=== PATIENT | female | born 1955 | race Caucasian/White ===

== ENCOUNTER → 2018-02-23 | Outpatient (CLI) | payer OTHER | END | disposition home or self-care (01) | LOC: Rad HDHVI 13:54 | PROVIDERS: ATTEND Internal Medicine Cardiovascular Disease | DX: I34.0 Nonrheumatic mitral (valve) insufficiency (principal); I10 Essential (primary) hypertension; E11.9 Type 2 diabetes mellitus without complications; R00.2 Palpitations | CPT/HCPCS: 93306 ==

== ENCOUNTER → 2020-06-17 | Outpatient (CLI) | payer MEDICARE | END | disposition home or self-care (01) | LOC: Rad HDHVI 11:05 | PROVIDERS: ATTEND Internal Medicine Cardiovascular Disease | DX: I34.0 Nonrheumatic mitral (valve) insufficiency (principal); I10 Essential (primary) hypertension; R06.02 Shortness of breath; R00.2 Palpitations | CPT/HCPCS: 93306 ==

== ENCOUNTER → 2020-06-25 | Outpatient (CLI) | payer MEDICARE ==
[~2020-06-25] VITALS: Ht 154.9 cm; Wt 95.3 kg
[~2020-06-25] MED LIST: ADENOSINE 80 MG in GIVE UN-DILUTED 0 ML IV ONE; ADENOSINE 90 MG/30 ML INJ IV ONE
== END | disposition home or self-care (01) ==
LOC: Rad HDHVI 09:01
PROVIDERS: ATTEND Internal Medicine Cardiovascular Disease
DX: I10 Essential (primary) hypertension (principal); E11.42 Type 2 diabetes mellitus with diabetic polyneuropathy; E66.9 Obesity, unspecified; E78.5 Hyperlipidemia, unspecified; Z82.49 Family history of ischemic heart disease and other diseases of the circulatory system
CPT/HCPCS: 78452; 93005; 96374; 96375; A9500; J0153

== ENCOUNTER → 2021-03-19 | Outpatient (CLI) | payer MEDICARE ==
[2021-03-19 15:18] LABS: Urine Blood Negative /uL (Negative); Urine Specific Gravity 1.017 (1.001-1.035)
[2021-03-19 15:27] LABS: BUN/Creatinine Ratio 15.1; Calcium 9.9 mg/dL (8.5-10.1); Potassium 3.5 mmol/L (3.5-5.1)
== END | disposition home or self-care (01) ==
LOC: LAB 13:33
PROVIDERS: ATTEND Internal Medicine Cardiovascular Disease
DX: N39.0 Urinary tract infection, site not specified (principal); I10 Essential (primary) hypertension
CPT/HCPCS: 36415; 80048; 81003; 87086

== ENCOUNTER → 2022-03-08 | Outpatient (CLI) | payer MEDICARE | END | disposition home or self-care (01) | LOC: Rad HDHVI 08:05 | PROVIDERS: ATTEND Internal Medicine Cardiovascular Disease | DX: J32.9 Chronic sinusitis, unspecified (principal); I10 Essential (primary) hypertension; E78.5 Hyperlipidemia, unspecified | CPT/HCPCS: 70220; 93880 ==

== ENCOUNTER → 2022-03-15 | Outpatient (CLI) | payer MEDICARE | END | disposition home or self-care (01) | LOC: Rad HDHVI 08:42 | PROVIDERS: ATTEND Internal Medicine Cardiovascular Disease | DX: I07.1 Rheumatic tricuspid insufficiency (principal); R00.2 Palpitations | CPT/HCPCS: 93306 ==

== ENCOUNTER → 2023-01-18 | Outpatient (CLI) | payer MEDICARE | END | disposition home or self-care (01) | LOC: Rad HDHVI 14:23 | PROVIDERS: ATTEND Internal Medicine Cardiovascular Disease | DX: M19.012 Primary osteoarthritis, left shoulder (principal); M47.812 Spondylosis without myelopathy or radiculopathy, cervical region; M48.02 Spinal stenosis, cervical region; M50.30 Other cervical disc degeneration, unspecified cervical region; G50.0 Trigeminal neuralgia | CPT/HCPCS: 72040; 73030 ==

== ENCOUNTER 2023-02-04 06:04 | Inpatient (IN) | payer MEDICARE ==
[~2023-02-04] VITALS: Ht 154.9 cm; Wt 88.7 kg
[2023-02-04 08:33] VITALS: BP 165/58
[2023-02-04] MEDS ORDERED: MORPHINE SULFATE INJ 2 MG/ml SYRG IV PRN (09:00)
[2023-02-04] MEDS ORDERED: NITROGLYCERIN 0.4 MG SL TAB SL PRN (09:00)
[2023-02-04] MEDS ORDERED: ASPI325T4 PO (10:00)
[2023-02-04] MEDS ORDERED: CHOL20007 PO (10:00)
[2023-02-04] MEDS ORDERED: ALPR0.254 PO (10:00)
[2023-02-04] MEDS ORDERED: LOVA40TA72 PO (10:00)
[2023-02-04] MEDS ORDERED: ENOXAPARIN SOD 60 MG/0.6 ML SYRINGE SC SCH (10:00)
[2023-02-04] MEDS ORDERED: OMEP-335 PO (10:00)
[2023-02-04] MEDS ORDERED: DULA0.5I SC (10:00)
[2023-02-04] MEDS ORDERED: INSLISPI SC (10:00)
[2023-02-04] MEDS ORDERED: METF-929 PO (10:00)
[2023-02-04] MEDS ORDERED: GING500C3 PO (10:00)
[2023-02-04] MEDS ORDERED: OLMETAB9 PO (10:00)
[2023-02-04] MEDS ORDERED: INSLANTI SC (10:00)
[2023-02-04] MEDS ORDERED: MAGN400T40 PO (10:00)
[2023-02-04] MEDS: ENOXAPARIN SOD 60 MG/0.6 ML SYRINGE SC SCH ×2 (12:36→21:47)
[2023-02-04 13:00] VITALS: BP 149/71
[2023-02-04 17:00] VITALS: BP 143/66
[2023-02-04 22:00] VITALS: BP 158/69
[2023-02-05 05:00] VITALS: BP 159/63
[2023-02-05 06:51] LABS: Basophils # (auto) 0.1 10 ^3/uL (0-0.2); Eosinophils # (auto) 0.3 10 ^3/uL (0-0.8); Eosinophils % (auto) 2.1 % (0.0-7.0); Lymphocytes # (auto) 1.7 10 ^3/uL (0.4-5.4); Mean Corpuscular Volume 75.2 fL (80.0-100.0); Neutrophils # (auto) 9.5 10 ^3/uL (1.6-8.6); White Blood Cell 12.7 10^3/uL (4.4-10.8)
[2023-02-05 06:54] LABS: Basophils % (auto) 0.8 % (0.0-2.0); Hematocrit 42.3 % (36.0-46.0); Lymphocytes % (auto) 13.7 % (10.0-50.0); Mean Corpuscular Hgb Conc. 33.2 g/dL (32.0-36.0); Monocytes % (auto) 8.2 % (0.0-12.0); Neutrophils % (auto) 75.2 % (37.0-80.0); Nucleated Red Blood Cells % 0.3 %; Red Blood Cells 5.62 10^6/uL (4.0-5.20); Red Cell Distribution Width 17.3 % (11.8-14.3)
[2023-02-05 07:29] LABS: Potassium 3.6 mmol/L (3.5-5.1)
[2023-02-05 07:43] LABS: Albumin 3.6 g/dL (3.4-5.0); BUN/Creatinine Ratio 18.8 (10.0-20.0); Bilirubin, Total 0.5 mg/dL (0.2-1.0); Total Protein 7.8 g/dL (6.4-8.2)
[2023-02-05 08:00] VITALS: BP 141/60
[2023-02-05 09:00] VITALS: BP 141/68
[2023-02-05] MEDS: ENOXAPARIN SOD 60 MG/0.6 ML SYRINGE SC SCH ×2 (10:08→22:19)
[2023-02-05] MEDS ORDERED: ACETAMINOPHEN 325 MG TAB PO PRN (10:30)
[2023-02-05] MEDS ORDERED: KETOROLAC TROMETH 30 MG/ML 1ML VIAL IV PRN ×2 (10:30→10:45)
[2023-02-05] MEDS ORDERED: DULAGLUTIDE 1.5 MG SC SCH (12:15)
[2023-02-05 13:21] VITALS: BP 150/58
[2023-02-05] MEDS ORDERED: INSULIN LISPRO (HUMAN) 100 UNITS/ML ML SC SCH (14:00)
[2023-02-05 17:06] VITALS: BP 140/56
[2023-02-05] MEDS: INSULIN LISPRO (HUMAN) 100 UNITS/ML ML SC SCH (17:28)
[2023-02-05 22:00] VITALS: BP 155/79
[2023-02-05] MEDS: ALPRAZolam 0.25 MG TAB PO SCH (22:00)
[2023-02-05] MEDS ORDERED: PATIENTS OWN MEDICATION (Omeprazole 20 MG) PO SCH (22:00)
[2023-02-05] MEDS: ATORVASTATIN 20 MG TAB PO SCH (22:14)
[2023-02-05] MEDS: MAGNESIUM OXIDE 400 MG TAB PO SCH (22:14)
[2023-02-05] MEDS: PANTOPRAZOLE 40 MG TAB PO SCH (22:14)
[2023-02-06 05:00] VITALS: BP 158/70
[2023-02-06] MEDS: INSULIN LISPRO (HUMAN) 100 UNITS/ML ML SC SCH ×3 (06:48→17:23)
[2023-02-06 08:00] VITALS: BP 148/64
[2023-02-06 09:00] VITALS: BP 148/64
[2023-02-06] MEDS: ENOXAPARIN SOD 60 MG/0.6 ML SYRINGE SC SCH ×2 (09:09→22:31)
[2023-02-06] MEDS: ALPRAZolam 0.25 MG TAB PO SCH ×2 (09:09→22:30)
[2023-02-06] MEDS: ASPirin-EC 81 mg tab PO SCH (09:10)
[2023-02-06] MEDS: CHOLECALCIFEROL (VITD3) 2,000 UNIT CAP/TAB PO SCH (09:10)
[2023-02-06] MEDS: PANTOPRAZOLE 40 MG TAB PO SCH ×2 (09:10→22:30)
[2023-02-06] MEDS: MAGNESIUM OXIDE 400 MG TAB PO SCH ×2 (09:10→22:30)
[2023-02-06] MEDS: [UNRECOGNIZED DRUG - OTHER] PO SCH (09:10)
[2023-02-06 11:31] LABS: INR 1.08 (0.9-1.15); Partial Thromboplastin Time 37.3 sec (24.6-33.4)
[2023-02-06 13:00] VITALS: BP 149/72
[2023-02-06 14:46] LABS: Urine Bacteria FEW /hpf (None Seen); Urine Blood Negative /uL (Negative); Urine WBC 23 /hpf (0 - 5)
[2023-02-06 17:00] VITALS: BP 156/58
[2023-02-06 22:00] VITALS: BP 156/63
[2023-02-06] MEDS: ATORVASTATIN 20 MG TAB PO SCH (22:30)
[2023-02-07] VITALS (9 sets, daily range): BP systolic 126–153; BP diastolic 55–68
[2023-02-07] MEDS: INSULIN LISPRO (HUMAN) 100 UNITS/ML ML SC SCH ×3 (06:23→18:46)
[2023-02-07] MEDS: ASPirin-EC 81 mg tab PO SCH (10:00)
[2023-02-07] MEDS: ENOXAPARIN SOD 60 MG/0.6 ML SYRINGE SC SCH (10:00)
[2023-02-07] MEDS: CHOLECALCIFEROL (VITD3) 2,000 UNIT CAP/TAB PO SCH (10:17)
[2023-02-07] MEDS: MAGNESIUM OXIDE 400 MG TAB PO SCH ×2 (10:17→22:02)
[2023-02-07] MEDS: PANTOPRAZOLE 40 MG TAB PO SCH ×2 (10:17→22:02)
[2023-02-07] MEDS: ALPRAZolam 0.25 MG TAB PO SCH ×2 (10:17→22:02)
[2023-02-07] MEDS: [UNRECOGNIZED DRUG - OTHER] PO SCH (10:18)
[2023-02-07] MEDS ORDERED: ANGIOMAX 250 MG VIAL IV ONE (14:18)
[2023-02-07] MEDS ORDERED: MIDAZOLAM HCL 2MG/2ML 2ml VIAL (1mg/ml) ONE (14:18)
[2023-02-07] MEDS ORDERED: fentaNYL CITRATE 100 MCG/2 ML VL ONE (14:18)
[2023-02-07] MEDS ORDERED: SODIUM CHL 0.9% 50 ML ONE (14:18)
[2023-02-07] MEDS ORDERED: LIDOCAINE 2%HCL (LOCAL ANESTH.) INJ 20ML MDV ONE (14:20)
[2023-02-07] MEDS ORDERED: IODIXANOL 320MG/ML 100ML BTL IV ONE (14:20)
[2023-02-07] MEDS ORDERED: TICAGRELOR 90 MG TAB ONE (14:52)
[2023-02-07] MEDS ORDERED: ASPirin 325 MG TAB ONE (14:52)
[2023-02-07] MEDS: TICAGRELOR 90 MG TAB PO SCH (22:01)
[2023-02-07] MEDS: ATORVASTATIN 20 MG TAB PO SCH (22:01)
[2023-02-08 05:19] VITALS: BP 125/83
[2023-02-08] MEDS: INSULIN LISPRO (HUMAN) 100 UNITS/ML ML SC SCH ×3 (06:25→18:00)
[2023-02-08 09:00] VITALS: BP 120/49
[2023-02-08] MEDS ORDERED: OLMESARTAN PO SCH (10:00)
[2023-02-08] MEDS: PANTOPRAZOLE 40 MG TAB PO SCH (10:00)
[2023-02-08] MEDS ORDERED: HYDROCHLOROTHIAZIDE PO SCH (10:00)
[2023-02-08] MEDS ORDERED: AMLODIPINE PO SCH (10:00)
[2023-02-08] MEDS: CHOLECALCIFEROL (VITD3) 2,000 UNIT CAP/TAB PO SCH (10:00)
[2023-02-08] MEDS: ASPirin-EC 81 mg tab PO SCH (10:00)
[2023-02-08] MEDS: ALPRAZolam 0.25 MG TAB PO SCH (10:00)
[2023-02-08] MEDS: MAGNESIUM OXIDE 400 MG TAB PO SCH (10:01)
[2023-02-08] MEDS: TICAGRELOR 90 MG TAB PO SCH (10:01)
[2023-02-08 13:00] VITALS: BP 149/64
[2023-02-08 16:56] VITALS: BP 149/62
== END 2023-02-08 19:00 | disposition home or self-care (01) | DRG 247 ==
LOC: WEST WING 06:30 → UNDOADMIN 06:30 → WEST WING 08:50 → TELE-WESTW 02-05 09:06
PROVIDERS: ADMIT Internal Medicine Cardiovascular Disease; ATTEND Internal Medicine Cardiovascular Disease
PROC: 027034Z Dilation of Coronary Artery, One Artery with Drug-eluting Intraluminal Device, Percutaneous Approach (ICD-10-PCS; principal; 2023-02-07)
PROC: 4A033BC Measurement of Arterial Pressure, Coronary, Percutaneous Approach (ICD-10-PCS; 2023-02-07)
PROC: 4A023N7 Measurement of Cardiac Sampling and Pressure, Left Heart, Percutaneous Approach (ICD-10-PCS; 2023-02-07)
PROC: B211YZZ Fluoroscopy of Multiple Coronary Arteries using Other Contrast (ICD-10-PCS; 2023-02-07)
PROC: B215YZZ Fluoroscopy of Left Heart using Other Contrast (ICD-10-PCS; 2023-02-07)
PROC: B41CYZZ Fluoroscopy of Pelvic Arteries using Other Contrast (ICD-10-PCS; 2023-02-07)
DX: I21.4 Non-ST elevation (NSTEMI) myocardial infarction (principal); E78.5 Hyperlipidemia, unspecified; I10 Essential (primary) hypertension; Z20.822 Contact with and (suspected) exposure to COVID-19; Z68.36 Body mass index [BMI] 36.0-36.9, adult; E11.9 Type 2 diabetes mellitus without complications; F41.9 Anxiety disorder, unspecified; E66.01 Morbid (severe) obesity due to excess calories; I25.119 Atherosclerotic heart disease of native coronary artery with unspecified angina pectoris; Z82.49 Family history of ischemic heart disease and other diseases of the circulatory system; Z83.3 Family history of diabetes mellitus
CPT/HCPCS: 36415; 71045; 80053; 81001; 82962; 83880; 85025; 85610; 85730; 86850; 86900; 86901; 92941; 93005; 93458; 99152; G0378; J1815; J1885; J2250; Q9967

== ENCOUNTER → 2023-03-08 | Outpatient (CLI) | payer MEDICARE ==
[~2023-03-08] MED LIST changes: -ADENOSINE 80 MG in GIVE UN-DILUTED 0 ML IV ONE; -ADENOSINE 90 MG/30 ML INJ IV ONE; +ALPR0.254 PO; +ASPI325T4 PO; +CHOL20007 PO; +DULA0.5I SC; +GING500C3 PO; +INSLANTI SC; +INSLISPI SC; +LOVA40TA72 PO; +MAGN400T40 PO; +METF-929 PO; +OLMETAB9 PO; +OMEP-335 PO
== END | disposition home or self-care (01) ==
LOC: Rad HDHVI 13:44
PROVIDERS: ATTEND Internal Medicine Cardiovascular Disease
DX: I34.0 Nonrheumatic mitral (valve) insufficiency (principal); R06.02 Shortness of breath; R00.2 Palpitations
CPT/HCPCS: 93306

== ENCOUNTER → 2023-11-24 | Outpatient (CLI) | payer MEDICARE ==
[~2023-11-24] MED LIST changes: +OLME-49 PO; -OLMETAB9 PO
== END | disposition home or self-care (01) ==
LOC: Rad HDHVI 12:39
PROVIDERS: ATTEND Internal Medicine Cardiovascular Disease
DX: I08.0 Rheumatic disorders of both mitral and aortic valves (principal); I10 Essential (primary) hypertension; R06.02 Shortness of breath
CPT/HCPCS: 93306

== ENCOUNTER → 2023-12-02 | Outpatient (CLI) | payer MEDICARE ==
[~2023-12-02] VITALS: Ht 154.9 cm; Wt 79.8 kg
[~2023-12-02] MED LIST changes: +ADENOSINE 67 MG in GIVE UN-DILUTED 0 ML IV ONE; +ADENOSINE 90 MG/30 ML INJ IV ONE
== END | disposition home or self-care (01) ==
LOC: Rad HDHVI 08:45
PROVIDERS: ATTEND Internal Medicine Cardiovascular Disease
DX: I11.0 Hypertensive heart disease with heart failure (principal); I50.33 Acute on chronic diastolic (congestive) heart failure; I25.10 Atherosclerotic heart disease of native coronary artery without angina pectoris; E11.21 Type 2 diabetes mellitus with diabetic nephropathy; E11.9 Type 2 diabetes mellitus without complications; R06.02 Shortness of breath; E78.00 Pure hypercholesterolemia, unspecified; Z82.49 Family history of ischemic heart disease and other diseases of the circulatory system
CPT/HCPCS: 78452; 93005; 96374; 96375; A9500; J0153

== ENCOUNTER → 2024-09-28 | Outpatient (CLI) | payer MEDICARE ==
[~2024-09-28] VITALS: Ht 154.9 cm; Wt 79.8 kg
[~2024-09-28] MED LIST changes: -ASPI325T4 PO; +ASPI325T6 PO
== END | disposition home or self-care (01) ==
LOC: Rad HDHVI 09:22
PROVIDERS: ATTEND Internal Medicine Cardiovascular Disease
DX: I11.0 Hypertensive heart disease with heart failure (principal); I50.23 Acute on chronic systolic (congestive) heart failure; I50.33 Acute on chronic diastolic (congestive) heart failure; I25.10 Atherosclerotic heart disease of native coronary artery without angina pectoris; E78.00 Pure hypercholesterolemia, unspecified; E11.21 Type 2 diabetes mellitus with diabetic nephropathy; I25.5 Ischemic cardiomyopathy; Z82.49 Family history of ischemic heart disease and other diseases of the circulatory system
CPT/HCPCS: 78452; 93005; 96374; 96375; A9500; J0153

== ENCOUNTER 2025-03-06 16:36 | Inpatient (IN) | payer MEDICARE ==
[~2025-03-06] VITALS: Ht 154.9 cm; Wt 81.5 kg
[~2025-03-06 16:36] MED LIST changes: -ADENOSINE 67 MG in GIVE UN-DILUTED 0 ML IV ONE; -ADENOSINE 90 MG/30 ML INJ IV ONE
--- NOTE | 2025-03-06 16:57 | ECG ---
[facility] Test Date: 2025-03-06 Test Time: 16:43:47 Pat Name: MARTÍNEZ CARBALLO Department: ER Room: Gender: F Subeditor: DONITA : 1955 Requested By: MARCIAL PATINO Order Number: [id number] Reading MD: Nathen Huber Measurements Intervals [place] Rate: 77 P: 39 ID: [id number] QRS: -15 QRSD: 95 T: 58 QT: 415 QTc: 470 Interpretive Statements Sinus rhythm Borderline left axis deviation Abnormal R-wave progression, early transition Electronically Signed On 03-06-2025 17:12:01 PDT by Nathen Huber Please click the below link to view image of tracing.
[2025-03-06 18:14] LABS: Basophils # (auto) 0.1 10 ^3/uL (0-0.2); Eosinophils # (auto) 0 10 ^3/uL (0-0.8); Hemoglobin 14.9 g/dL (12.2-16.2); Monocytes # (auto) 0.5 10 ^3/uL (0-1.3)
[2025-03-06 18:15] LABS: Basophils % (auto) 0.8 % (0.0-2.0); Eosinophils % (auto) 0.3 % (0.0-7.0); Hematocrit 42.6 % (36.0-46.0); Lymphocytes # (auto) 1.2 10 ^3/uL (0.4-5.4); Lymphocytes % (auto) 12.2 % (10.0-50.0); Mean Corpuscular Hemoglobin 35.9 pg (28.0-32.0); Mean Corpuscular Volume 102.7 fL (80.0-100.0); Monocytes % (auto) 5.1 % (0.0-12.0); Neutrophils # (auto) 7.9 10 ^3/uL (1.6-8.6); Neutrophils % (auto) 81.6 % (37.0-80.0); Nucleated Red Blood Cells % 0.2 %; Platelet Count (auto) 430 10^3/uL (140-450); Red Blood Cells 4.14 10^6/uL (4.0-5.20); Red Cell Distribution Width 14.2 % (11.8-14.3); White Blood Cell 9.6 10^3/uL (4.4-10.8)
--- NOTE | 2025-03-06 18:20 | DVH ---
XY CHEST TWO VIEWS ROUTINE CLINICAL HISTORY: chest pain COMPARISON: None TECHNIQUE: Frontal and lateral view of the chest was obtained FINDINGS: Lines and Tubes: None Lungs: No focal consolidation. Bilateral lower lung zone linear densities. Pleura: No effusion. No pneumothorax. Cardiomediastinal contours:Heart size is within normal limits. Interval placement of a device overlyi ng the left chest wall. Unchanged prominence of the pulmonary arteries which may be seen with pulmona ry arterial hypertension Bones: No acute osseous abnormality. IMPRESSION: Bilateral lower lung zone linear atelectasis. Otherwise, no evidence for acute cardiopulmonary disea se
[2025-03-06 18:27] LABS: Alanine Aminotransferase 11 U/L (7-40); Alkaline Phosphatase 100 U/L (46-116); Anion Gap 12 (5-15); Aspartate Aminotransferase 17 U/L (13-40); BUN/Creatinine Ratio 17.2 (10.0-20.0); Blood Urea Nitrogen 17 mg/dL (9-23); Carbon Dioxide 23 mmol/L (20-31); Potassium 3.8 mmol/L (3.5-5.1); Total Protein 7.7 g/dL (5.7-8.2)
[2025-03-06 18:28] LABS: Bilirubin, Total 0.7 mg/dL (0.2-1.0)
[2025-03-06 18:33] LABS: Albumin 4.9 g/dL (3.2-4.8); Chloride 94 mmol/L (98-107); Glucose 126 mg/dL (74-106); Sodium 129 mmol/L (136-145)
--- NOTE | 2025-03-06 18:51 | ED.PDOC ---
HPI Comments THIS IS A 69-YEAR-OLD FEMALE C/O LEFT SIDED CHEST PAIN X 1 WEEK WITH UPPER BACK PAIN, LEFT EAR PAIN AND SHOULDER PAIN C/O HEADACHE DENIES N/V/D DENIES DIZZINESS OR SOB HAD HOLTER MONITOR PLACED BY DR THAKUR 4 DAYS AGO. Chief Complaint: Chest Pain Time Seen by MD: 17:22 Primary Care Provider: OFE Reviewed Notes: Nurses Notes, Medications, Allergies Allergies: Coded Allergies: Codeine (Verified Allergy, Unknown, 09/10/16) Penicillins (Verified Allergy, Unknown, 09/10/16) Sulfa Antibiotics (Verified Allergy, Unknown, 09/10/16) Home Meds Reported Medications Insulin Lispro (Human) (Humalog) 100 Unit/Ml Inj, 15 UNIT SC TID, INJ 02/04/23 Insulin Glargine (Lantus) 100 Unit/Ml Inj, 55 UNIT SC AC, INJ 02/04/23 Aspirin (Aspirin) 325 Mg Tab, 81 MG PO DAILY for 30 Days, MG 02/04/23 Cristina Oil (Cristina) 500 Mg Cap, 4 CAP PO Q6HR, CAP 02/04/23 Alprazolam (Alprazolam) 0.25 Mg Tab, 1 TAB PO BID, #60 TAB 02/04/23 Cholecalciferol (VITAMIN D3) 2,000 Unit Tab, 5000 UNITS PO DAILY, #90 TAB 3 Refills 02/04/23 Magnesium Oxide (MAGNESIUM OXIDE) 400 Mg Tab, 1 TAB PO BID, #60 TAB 5 Refills 02/04/23 Lovastatin (Lovastatin) 40 Mg Tab, 1 TAB PO DAILY, #30 TAB 5 Refills 02/04/23 Olmesartan Medoxomil-Amlodipin (Tribenzor) Tab, 1 TAB PO DAILY, #30 TAB 5 Refills 02/04/23 Metformin HCl (Metformin Hydrochloride) 1,000 Mg Tab, 1000 MG PO BID, TAB 02/04/23 Omeprazole (Omeprazole) 20 Mg Tab, 20 MG PO BID, TAB 02/04/23 Dulaglutide (Trulicity) 1.5 Mg/0.5 Ml Inj, 1.5 MG SC QWEEKLY, INJ 02/04/23 Information Source: Patient Mode of Arrival: Ambulatory Past Medical History Medical History: DM (INSULIN DEPENDENT) Operations (others): CARDIAC STENT PLACEMENT X1 Family History Family History: Unknown Social History Smoking: Non-Smoker Alcohol: Denies ETOH Use Drugs: Denies Drug Use Constitutional: denies: chills, diaphoresis, fatigue, fever, malaise, sweats, weakness, others EENTM: denies: blurred vision, double vision, ear bleeding, ear discharge, ear drainage, ear pain, ear ringing, eye pain, eye redness, hearing loss, mouth pain, mouth swelling, nasal discharge, nose bleeding, nose congestion, nose pain, photophobia, tearing, throat pain, throat swelling, voice changes, others Respiratory: denies: cough, hemoptysis, orthopnea, SOB at rest, shortness of breath, SOB with excertion, stridor, wheezing, others Cardiovascular: reports: chest pain; denies: dizzy spells, diaphoresis, Dyspnea on exertion, edema, irregular heart beat, left arm pain, lightheadedness, palpitations, PND, syncope, others Gastrointestinal: denies: abdomen distended, abdominal pain, blood streaked bowels, constipated, diarrhea, dysphagia, difficulty swallowing, hematemesis, melena, nausea, poor appetite, poor fluid intake, rectal bleeding, rectal pain, vomiting, others Genitourinary: denies: abnormal vagina bleeding, burning, dyspareunia, dysuria, flank pain, frequency, hematuria, incontinence, pain, , vagina discharge, urgency, others Neurological: reports: headache; denies: dizziness, fainting, left sided numbness, left sided weakness, numbness, paresthesia, pre-existing deficit, right sided numbness, right sided weakness, seizure, speech problems, tingling, tremors, weakness, others Musculoskeletal: reports: back pain; denies: gout, joint pain, joint swelling, muscle pain, muscle stiffness, neck pain, others Integumetry: denies: bruises, change in color, change in hair/nails, dryness, laceration, lesions, lumps, rash, wounds, others Allergic/Immunocompromised: denies: Difficulty Healing, Frequent Infections, Hives, Itching, others Hematologic/Lymphatic: denies: anemia, blood clots, easy bleeding, easy bruising, swollen glands, others Endocrine: denies: excessive hunger, excessive sweating, excessive thirst, excessive urination, flushing, intolerance to cold, intolerance to heat, unexplained weight gain, unexplained weight loss, others Psychiatric: denies: anxiety, bipolar disorder, depression, hopeless, panic disorder, schizophrenia, sleepless, suicidal, others Physical Exam General Appearance: No Apparent Distress, Normal HEENT: Normal ENT Inspection, Pharynx Normal, TMs Normal Neck: Full Range of Motion, Non-Tender Respiratory: Chest Non-Tender, Lungs Clear, No Respiratory Distress, Normal Breath Sounds Cardiovascular: No Edema, No JVD, No Murmur, No Gallop, Normal Peripheral Pulses, Regular Rate/Rhythm Breast Exam: Deferred Gastrointestinal: No Organomegaly, Non Tender, No Pulsatile Mass, Normal Bowel Sounds, Soft Genitalia: Deferred Pelvic: Deferred Rectal: Deferred Extremities: Normal capillary refill, Normal inspection, Normal range of motion, Non-tender, No pedal edema Musculoskeletal : Apperance: Normal Neurologic: Alert, 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 Was a procedure done?: No CP Differential Dx Differential Diagnosis: N/A Differential Diagnosis: Chest Wall Pain, Esophageal reflux/spasm, Gastritis, Myocardial Infarction, Pericarditis X-Ray, Labs, Meds, VS Vital Signs Date Time Temp Pulse Resp B/P (MAP) Pulse Ox O2 Delivery O2 Flow Rate FiO2 03/06/25 16:45 77 03/06/25 16:37 98.3 75 18 154/61 (92) 97 98.3 Lab Test 03/06/25 17:56 03/06/25 16:52 03/06/25 16:50 Range/Units Troponin I High Sensitivity 24 24 </=34 ng/L White Blood Count 9.6 4.4-10.8 10^3/uL Red Blood Count 4.14 4.0-5.20 10^6/uL Hemoglobin 14.9 12.2-16.2 g/dL Hematocrit 42.6 36.0-46.0 % Mean Corpuscular Volume 102.7 H 80.0-100.0 fL Mean Corpuscular Hemoglobin 35.9 H 28.0-32.0 pg Mean Corpuscular Hemoglobin Concent 35.0 32.0-36.0 g/dL Red Cell Distribution Width 14.2 11.8-14.3 % Platelet Count 430 140-450 10^3/uL Mean Platelet Volume 6.5 L 6.9-10.8 fL Neutrophils (%) (Auto) 81.6 H 37.0-80.0 % Lymphocytes (%) (Auto) 12.2 10.0-50.0 % Monocytes (%) (Auto) 5.1 0.0-12.0 % Eosinophils (%) (Auto) 0.3 0.0-7.0 % Basophils (%) (Auto) 0.8 0.0-2.0 % Neutrophils # (Auto) 7.9 1.6-8.6 10 ^3/uL Lymphocytes # (Auto) 1.2 0.4-5.4 10 ^3/uL Monocytes # (Auto) 0.5 0-1.3 10 ^3/uL Eosinophils # (Auto) 0 0-0.8 10 ^3/uL Basophils # (Auto) 0.1 0-0.2 10 ^3/uL Nucleated Red Blood Cells 0.2 % Sodium Level 129 L 136-145 mmol/L Potassium Level 3.8 3.5-5.1 mmol/L Chloride Level 94 L 98-107 mmol/L Carbon Dioxide Level 23 20-31 mmol/L Anion Gap 12 5-15 Blood Urea Nitrogen 17 9-23 mg/dL Creatinine 0.99 0.550-1.02 mg/dL Glomerular Filtration Rate Calc 61 >90 mL/min BUN/Creatinine Ratio 17.2 10.0-20.0 Serum Glucose 126 H 74-106 mg/dL Calcium Level 11.0 H 8.7-10.4 mg/dL Total Bilirubin 0.7 0.2-1.0 mg/dL Aspartate Amino Transferase (AST) 17 13-40 U/L Alanine Aminotransferase (ALT) 11 7-40 U/L Alkaline Phosphatase 100 46-116 U/L Total Protein 7.7 5.7-8.2 g/dL Albumin 4.9 H 3.2-4.8 g/dL Thyroid Stimulating Hormone (TSH) 1.06 0.55-4.78 uIU/mL POC Glucose 131 H 70-106 mg/dl X-Ray, Labs, Meds, VS Comment IMAGING: Bilateral lower lung zone linear atelectasis. Otherwise, no evidence for acute cardiopulmonary disease. EKG NORMAL SINUS NO NOTED ST ELEVATION OR ECTOPY LABS: TROPONIN LEVEL 24, 24 CBC WITHIN NORMAL LIMITS CMP CALCIUM 11 0.0 PLAN: WE WILL ADMIT FOR CHEST PAIN, CARDIOLOGY CONSULT IN THE MORNING WITH PATIENTS REGULATORY AFFAIRS DIRECTOR DR. THAKUR. Time of 1ST Reevaluation: 18:50 Reevaluation 1ST: Unchanged Patient Education/Counseling: Diagnosis, Treatment, Prognosis Family Education/Counseling: Diagnosis, Treatment, Prognosis, Need For Follow Up Departure 1 Departure Time of Disposition: 18:50 Impression: Primary Impression: Chest pain Qualified Codes: R07.9 - Chest pain, unspecified Disposition: 09 ADMITTED INPATIENT Condition: Stable Discharged With: Spouse Critical Care Note Critical Care Time?: No Stability Stability form required: No Heart Score Heart Score: Heart Score Response (Comments) Value History Moderate Suspicious 1 EKG Normal 0 Age >65 2 Risk Factors >3 or Hx ASHD 2 Troponin Normal limit 0 Total 5 JUANITO DELGADO Mar 06, 2025 18:51
[2025-03-06] MEDS ORDERED: MORPHINE SULFATE INJ 2 MG/ml SYRG IV PRN (19:45)
[2025-03-06] MEDS ORDERED: ONDANSETRON HCL 4 MG/2 ML VIAL IV PRN (19:45)
[2025-03-06] MEDS ORDERED: NITROGLYCERIN 0.4 MG SL TAB SL PRN (19:45)
[2025-03-06] MEDS ORDERED: DEXTROSE (50%) 50ML SYRG IV PRN (19:45)
[2025-03-06 21:19] VITALS: PULSE 62; RESP 13; O2SAT 99
--- NOTE | 2025-03-06 21:53 | DVHHP2 ---
History of Present Illness Reason for Visit: Chest pain History of Present Illness 69-year-old female presents for evaluation of chest pain. Patient endorses a one-week history of left-sided chest pain/burning sensation that radiates to her left neck and left shoulder. No nausea or vomiting. No dizziness. Denies shortness or breath as well. Patient also reports being placed on a Holter monitor due to palpitations. Denies any other acute complaints at the moment. Past Medical History Diabetes mellitus and hypertension Past Surgical History PTCA Family History Noncontributory Smoke: No ALCOHOL: none Drugs: None Lives: with Family Review of Systems Review of Systems Review of systems are currently negative otherwise addressed in HPI. Allergies: Coded Allergies: Codeine (Verified Allergy, Unknown, 09/10/16) Penicillins (Verified Allergy, Unknown, 09/10/16) Sulfa Antibiotics (Verified Allergy, Unknown, 09/10/16) Medications Current Medications Medications Dose Ordered Sig/My Route Start Time Stop Time Status Last Admin Dose Admin Metoprolol Succinate 25 mg DAILY PO 03/07/25 10:00 Aspirin 81 mg DAILY PO 03/07/25 10:00 Atorvastatin Calcium 40 mg HS PO 03/06/25 22:00 Diagnostic Test (Pha) 1 strip ACHS 03/06/25 22:00 Insulin Human Regular ACHS SC 03/06/25 22:00 Dextrose 50 ml UD PRN IV 03/06/25 19:45 Ondansetron HCl 4 mg Q4HP PRN IV 03/06/25 19:45 Acetaminophen 650 mg Q6HP PRN PO 03/06/25 19:45 Nitroglycerin 0.4 mg Q5MINP PRN SL 03/06/25 19:45 Exam Vital Signs Vital Signs Date Time Temp Pulse Resp B/P (MAP) Pulse Ox O2 Delivery O2 Flow Rate FiO2 03/06/25 21:19 97.9 62 13 150/50 (83) 99 97.9 03/06/25 21:19 Room Air* 0 21 Exam Gen: 69-year-old female in no apparent distress Skin: Warm, dry, normal color and texture, no rash. HEENT: Normocephalic atraumatic, mucous membranes moist and pink. Neck: Cervical and supraclavicular nodes normal without enlargement, trachea is midline, thyroid gland is normal without masses. Pulmonary: Clear to auscultation and percussion bilaterally. Cardiac: Regular rate and rhythm. No murmur Abdomen: Soft, nontender, nondistended, bowel sounds present all 4 quadrants, no guarding, no rigidity, no organomegaly. Extremities: No cyanosis, clubbing, no edema Neuro: Cranial nerves II through XII grossly intact, normal affect and speech, no focal motor deficits. Labs/Xrays ORDERING PHYSICIAN: JUANITO DELGADO PROCEDURE(s): CXR2 - CHEST TWO VIEWS ROUTINE REASON: chest pain ORDER NUMBER(s): [id number], ACCESSION NUMBER(s): [id number] CHEST TWO VIEWS ROUTINE CLINICAL HISTORY: chest pain COMPARISON: None TECHNIQUE: Frontal and lateral view of the chest was obtained FINDINGS: Lines and Tubes: None Lungs: No focal consolidation. Bilateral lower lung zone linear densities. Pleura: No effusion. No pneumothorax. Cardiomediastinal contours:Heart size is within normal limits. Interval placement of a device overlying the left chest wall. Unchanged prominence of the pulmonary arteries which may be seen with pulmonary arterial hypertension Bones: No acute osseous abnormality. IMPRESSION: Bilateral lower lung zone linear atelectasis. Otherwise, no evidence for acute cardiopulmonary disease Labs Test 03/06/25 17:56 03/06/25 16:52 03/06/25 16:50 Range/Units Troponin I High Sensitivity 24 </=34 ng/L White Blood Count 9.6 4.4-10.8 10^3/uL Red Blood Count 4.14 4.0-5.20 10^6/uL Hemoglobin 14.9 12.2-16.2 g/dL Hematocrit 42.6 36.0-46.0 % Mean Corpuscular Volume 102.7 H 80.0-100.0 fL Mean Corpuscular Hemoglobin 35.9 H 28.0-32.0 pg Mean Corpuscular Hemoglobin Concent 35.0 32.0-36.0 g/dL Red Cell Distribution Width 14.2 11.8-14.3 % Platelet Count 430 140-450 10^3/uL Mean Platelet Volume 6.5 L 6.9-10.8 fL Neutrophils (%) (Auto) 81.6 H 37.0-80.0 % Lymphocytes (%) (Auto) 12.2 10.0-50.0 % Monocytes (%) (Auto) 5.1 0.0-12.0 % Eosinophils (%) (Auto) 0.3 0.0-7.0 % Basophils (%) (Auto) 0.8 0.0-2.0 % Neutrophils # (Auto) 7.9 1.6-8.6 10 ^3/uL Lymphocytes # (Auto) 1.2 0.4-5.4 10 ^3/uL Monocytes # (Auto) 0.5 0-1.3 10 ^3/uL Eosinophils # (Auto) 0 0-0.8 10 ^3/uL Basophils # (Auto) 0.1 0-0.2 10 ^3/uL Nucleated Red Blood Cells 0.2 % Sodium Level 129 L 136-145 mmol/L Potassium Level 3.8 3.5-5.1 mmol/L Chloride Level 94 L 98-107 mmol/L Carbon Dioxide Level 23 20-31 mmol/L Anion Gap 12 5-15 Blood Urea Nitrogen 17 9-23 mg/dL Creatinine 0.99 0.550-1.02 mg/dL Glomerular Filtration Rate Calc 61 >90 mL/min BUN/Creatinine Ratio 17.2 10.0-20.0 Serum Glucose 126 H 74-106 mg/dL Calcium Level 11.0 H 8.7-10.4 mg/dL Total Bilirubin 0.7 0.2-1.0 mg/dL Aspartate Amino Transferase (AST) 17 13-40 U/L Alanine Aminotransferase (ALT) 11 7-40 U/L Alkaline Phosphatase 100 46-116 U/L Total Protein 7.7 5.7-8.2 g/dL Albumin 4.9 H 3.2-4.8 g/dL Thyroid Stimulating Hormone (TSH) 1.06 0.55-4.78 uIU/mL POC Glucose 131 H 70-106 mg/dl Assessment/Plan Assessment/Plan Assessment Chest pain Diabetes mellitus Hypertension Plan Admit the patient to telemetry to the hospitalist Echocardiogram pending Resume home medications Continue treatment per orders. Plan discussed with: Patient My Orders Orders - PAYAM OTERO Procedure Category Date Status Time Metoprolol Xl PHA 03/07/25 In Process Succinate (Toprol Xl) 10:00 Aspirin Tablet PHA 03/07/25 In Process 10:00 Atorvastatin (Lipitor) PHA 03/06/25 In Process 22:00 Lipid Panel LAB 03/06/25 Logged 19:41 Basic Metabolic Panel LAB 03/06/25 Logged 19:41 Glucose Blood PHA 03/06/25 In Process (Accu-Chek Comfort 22:00 Insulin R (Human) PHA 03/06/25 In Process (Insulin R) 22:00 Dextrose 50% Syringe PHA 03/06/25 In Process 19:45 Admit ADMIT 03/06/25 Transmitted 19:41 Ondansetron Hcl PHA 03/06/25 In Process (Zofran) 19:45 Cardiac DIET 03/07/25 Transmitted Diet-2gna,Lofat,Lochol Breakfast Echo 2d Mode Cardiac US 03/06/25 Logged DOP 19:41 Condition: Stable DARRIN 03/06/25 In Process 19:41 Acetaminophen Tablet PHA 03/06/25 In Process (Tylenol Tablet) 19:45 Bedrest With Bathroom DARRIN 03/06/25 In Process Privileg 19:41 Nitroglycerin PHA 03/06/25 In Process Sublingual (Ntrostat 19:45 Stat Ekg For Chest [facility] [place] 03/06/25 In Process Pain 19:41 Notify Md Of Changes DARRIN 03/06/25 In Process From Base 19:41 Histotechnologist Supervisor For DARRIN 03/06/25 In Process 24 Hours 19:41 Emergency Dysrhythmia [facility] [place] 03/06/25 In Process Protocol 19:41 Rhythm Strips Once [facility] [place] 03/06/25 In Process Every Shift 19:41 Oxygen By Nasal RT 03/06/25 Transmitted Cannula 19:41 Date of Service: Mar 06, 2025 Billing Provider: PAYAM OTERO Common Visit Codes: [id number] INP/OBS CARE (HIGH) PAYAM OTERO Mar 06, 2025 21:53
[2025-03-06 22:40] VITALS: PULSE 63
[2025-03-06] MEDS: ACCU-CHEK COMFORT CURVE STRIP VI SCH (22:50)
[2025-03-06] MEDS: ATORVASTATIN 20 MG TAB PO SCH (22:50)
[2025-03-06] MEDS: InsuLIN REG 1unit/0.01ml Soln (100units/ml) SC SCH (22:53)
[2025-03-06 23:46] VITALS: BP 127/55; PULSE 66; RESP 16; TEMP 98; O2SAT 98
[2025-03-07] VITALS (8 sets, daily range): BP systolic 123–149; BP diastolic 54–61; PULSE 64–72; RESP 16–18; TEMP 97.2–98.6; O2SAT 93–96
[2025-03-07] MEDS: ACETAMINOPHEN 325 MG TAB PO PRN (00:32)
[2025-03-07 07:31] LABS: Anion Gap 9 (5-15); Calcium 11.1 mg/dL (8.7-10.4); Carbon Dioxide 28 mmol/L (20-31); Chloride 96 mmol/L (98-107); Potassium 3.5 mmol/L (3.5-5.1); Sodium 133 mmol/L (136-145)
[2025-03-07 07:36] LABS: Blood Urea Nitrogen 18 mg/dL (9-23); Glucose 95 mg/dL (74-106); Triglycerides 147 mg/dL (< 150)
[2025-03-07 07:37] LABS: LDL Cholesterol 71 mg/dL (< 100)
[2025-03-07 07:38] LABS: Cholesterol 163 mg/dL (< 200); HDL Cholesterol 66 mg/dL (40-59)
[2025-03-07] MEDS ORDERED: HYDR500C3 PO (07:50)
[2025-03-07] MEDS ORDERED: SEMA2INJ3 (07:50)
[2025-03-07] MEDS ORDERED: TRAZ150T84 PO (07:50)
[2025-03-07] MEDS ORDERED: ALPR0.255 PO (07:50)
[2025-03-07] MEDS ORDERED: METF-372 PO (07:50)
[2025-03-07] MEDS ORDERED: METO25TA93 PO (07:50)
[2025-03-07] MEDS: ASPirin 81 mg TAB PO SCH (09:30)
[2025-03-07] MEDS: METOPROLOL SUCCINATE XL 50 MG TAB PO SCH (09:30)
[2025-03-07] MEDS ORDERED: METOPROLOL SUCCINATE XL 50 MG TAB PO SCH (10:00)
[2025-03-07] MEDS ORDERED: ALPRAZolam 0.25 MG TAB PO PRN (10:45)
--- NOTE | 2025-03-07 10:49 | DVHPN2 ---
Progress Note Date Seen: March 07, 2025 Medical Necessity Reason Pt with a Central, PICC or Fol: No Subjective Patient reports: No new complaints Review of Systems: HEENT:Normal, CVS:Normal, RESPIRATORY:Normal, GI:Normal, :Normal, MSK:Normal, NEURO:Normal Objective vital signs Vital Sign Date Time Temp Pulse Resp B/P (MAP) Pulse Ox O2 Delivery O2 Flow Rate FiO2 03/07/25 09:30 64 123/59 03/07/25 08:40 97.9 17 93 97.9 03/06/25 23:46 Room Air* 0 21 Total Intake and Output 03/06/25 03/06/25 03/07/25 14:59 22:59 06:59 Intake Total 315 ml Balance 315 ml medications Current Medications Medications Dose Ordered Sig/My Route Start Time Stop Time Status Last Admin Dose Admin Metoprolol Succinate 25 mg DAILY PO 03/07/25 10:00 03/07/25 09:30 25 MG Aspirin 81 mg DAILY PO 03/07/25 10:00 03/07/25 09:30 81 MG Atorvastatin Calcium 40 mg HS PO 03/06/25 22:00 03/06/25 22:50 40 MG Diagnostic Test (Pha) 1 strip ACHS 03/06/25 22:00 03/07/25 06:23 1 STRIP Insulin Human Regular ACHS SC 03/06/25 22:00 03/06/25 22:53 2 UNITS Dextrose 50 ml UD PRN IV 03/06/25 19:45 Ondansetron HCl 4 mg Q4HP PRN IV 03/06/25 19:45 Acetaminophen 650 mg Q6HP PRN PO 03/06/25 19:45 03/07/25 00:32 650 MG Nitroglycerin 0.4 mg Q5MINP PRN SL 03/06/25 19:45 Examination: GENERAL:Normal, HEENT:Normal, NECK:Normal, LUNGS:Normal, CVS:Normal, ABDOMEN:Normal, MSK:Normal, SKIN:Normal, NEURO:Normal, :Normal laboratory and microbiology Laboratory Tests 03/07/25 06:31 03/06/25 16:52 Test 03/07/25 06:31 Range/Units Serum Glucose 95 74-106 mg/dL Problem List/Assessment/Plan Problem List/Assessment/Plan #1 chest pain with cad: cardio eval #2 h/o event monitor #3: dm: ssi #4 htn #5 hyperlipidemia #6 hypercalcemia: check pth #7 essential thrombocytosis: on hydrea #8 anxiety #9 obesity #10 hyponatremia advance care planning- full code- time spent 18 mins Plan discussed with: Patient Date of Service: March 07, 2025 Billing Provider: PAYAM HUTSON MD Common Visit Codes: [id number] INP/OBS CARE(HIGH) Secondary Visit Codes: [id number] CARE PLAN 30 MINUTES PAYAM HUTSON MD March 07, 2025 10:49
[2025-03-07] MEDS: PANTOPRAZOLE 40 MG TAB PO SCH (10:59)
[2025-03-07] MEDS: MAGNESIUM OXIDE 400 MG TAB PO ONE (11:58)
[2025-03-07] MEDS: hydroxyUREA 500 MG CAP PO SCH (11:59)
[2025-03-07 15:08] LABS: Urine Bacteria FEW /hpf (None Seen); Urine Blood Negative /uL (Negative); Urine Clarity Clear (Clear); Urine Color Light-Yellow (Yellow); Urine Protein, UAD Negative (Negative); Urine Squamous Epithelial Cell FEW /hpf (<5); Urine Urobilinogen Normal (Negative); Urine WBC 1 /HPF (0-5)
[2025-03-08] VITALS (11 sets, daily range): BP systolic 112–155; BP diastolic 44–73; PULSE 55–74; RESP 13–17; TEMP 97.4–97.9; O2SAT 91–99
[2025-03-08] MEDS: ANGIOMAX 250 MG VIAL IV ONE (07:14)
[2025-03-08] MEDS: LIDOCAINE 2%HCL (LOCAL ANESTH.) INJ 20ML MDV ONE (07:15)
[2025-03-08] MEDS: IODIXANOL 320MG/ML 100ML BTL IV ONE (07:15)
[2025-03-08] MEDS ORDERED: MIDAZOLAM HCL 2MG/2ML 2ml VIAL (1mg/ml) ONE (07:15)
[2025-03-08] MEDS: SODIUM CHL 0.9% 0 ML ONE (07:15)
[2025-03-08] MEDS: fentaNYL CITRATE 100 MCG/2 ML VL ONE (07:15)
[2025-03-08] MEDS: IOHEXOL 350 MG/ML 100ML IJ ONE (07:19)
[2025-03-08 08:05] LABS: Anion Gap 10 (5-15); Carbon Dioxide 28 mmol/L (20-31)
[2025-03-08 08:10] LABS: BUN/Creatinine Ratio 18.8 (10.0-20.0); Blood Urea Nitrogen 18 mg/dL (9-23)
[2025-03-08 08:12] LABS: Calcium 11.2 mg/dL (8.7-10.4); Chloride 95 mmol/L (98-107); Glucose 178 mg/dL (74-106); Potassium 3.4 mmol/L (3.5-5.1); Sodium 133 mmol/L (136-145)
[2025-03-08 08:22] LABS: INR 1.09 (0.9-1.15); Partial Thromboplastin Time 31.1 SEC (24.5-34.5); Prothrombin Time 11.5 sec (9.3-11.8)
--- NOTE | 2025-03-08 09:25 | DVHOP ---
DATE OF SURGERY: 03/08/2025 INDICATIONS: The patient with chest pain, previous history of angioplasty with stent placement in the proximal/ostial LAD. Now because of ongoing chest pain, although troponins are negative, the patient is to undergo coronary angiography because of recurrent symptoms. DESCRIPTION OF PROCEDURE: The patient was prepped and draped in sterile condition. 1% Xylocaine used to anesthetize the right groin after conscious sedation was given. Using a Cook needle, the right femoral artery was engaged with Seldinger technique, a 6-[place] sheath in the right femoral artery. Using a 6-[place] JL4 catheter and 6-[place] JR4 catheter, selective left and right coronary angiography was performed. Using a 6-[place] pigtail catheter, ventriculogram was done. The right femoral arteriotomy site was closed using the Angio-Seal device. RESULTS: * Left main was patent. Left anterior descending artery distal to the stent has about a 40% narrowing with an FFR of 0.84. No flow restrictive lesion. * Circumflex without any flow restrictive lesion. * Right coronary artery large dominant vessel without any flow restrictive lesion. Left ventricular function shows ejection fraction of around 55% with an LVEDP of 15 mmHg with left ventricular systolic pressure of 160. Thus, at this time, the patient should be aggressively treated for hypertension, but no catheter-based intervention is required. Since FFR of the LAD distal to the previous stent has about a 40% narrowing that needs to be monitored constantly. Earnest Castaneda MD SA/MARCO ANTONIO TID: [id number] RECEIPT: [id number]
[2025-03-08] MEDS: MAGNESIUM OXIDE 400 MG TAB PO SCH (11:01)
--- NOTE | 2025-03-08 12:17 | DVHPN2 ---
Reviewed: Care Plan, H&P, Labs, Medications, Previous Orders, Radiology Changes from previous H/P or p: No Changes Objective Vitals Vital Signs Date Time Temp Pulse Resp B/P (MAP) Pulse Ox O2 Delivery O2 Flow Rate FiO2 03/08/25 11:03 60 141/58 03/08/25 10:08 16 96 03/08/25 07:30 Room Air* 0 21 03/08/25 05:00 97.7 97.7 Intake/Output Intake and Output 03/08/25 07:00 Intake Total 2180 ml Balance 2180 ml Intake Oral 2180 ml # Voids 10 Medications Current Medications Medications Dose Ordered Sig/My Route Start Time Stop Time Status Last Admin Dose Admin Metoprolol Succinate 25 mg DAILY PO 03/07/25 10:00 03/08/25 11:03 25 MG Aspirin 81 mg DAILY PO 03/07/25 10:00 03/08/25 11:02 81 MG Atorvastatin Calcium 40 mg HS PO 03/06/25 22:00 03/07/25 21:34 40 MG Diagnostic Test (Pha) 1 strip ACHS 03/06/25 22:00 03/08/25 11:25 1 STRIP Insulin Human Regular ACHS SC 03/06/25 22:00 03/08/25 11:25 3 UNITS Dextrose 50 ml UD PRN IV 03/06/25 19:45 Ondansetron HCl 4 mg Q4HP PRN IV 03/06/25 19:45 Acetaminophen 650 mg Q6HP PRN PO 03/06/25 19:45 03/08/25 05:26 650 MG Nitroglycerin 0.4 mg Q5MINP PRN SL 03/06/25 19:45 Hydroxyurea 500 mg BID PO 03/07/25 11:00 03/08/25 10:00 500 MG Alprazolam 0.25 mg Q12HP PRN PO 03/07/25 10:45 Pantoprazole Sodium 40 mg DAILY@0600 PO 03/07/25 10:59 03/08/25 05:22 40 MG Magnesium Oxide 400 mg DAILY PO 03/08/25 10:00 03/08/25 11:01 400 MG Laboratory Results Laboratory Tests 03/06/25 16:52 03/08/25 07:10 Chemistry Test 03/08/25 07:10 Calcium Level 11.2 mg/dL (8.7-10.4) H Coagulation Test 03/08/25 07:10 Prothrombin Time 11.5 sec (9.3-11.8) Prothrombin Time INR 1.09 (0.9-1.15) Activated Partial Thromboplast Time 31.1 SEC (24.5-34.5) HgA1c, TSH Test 03/08/25 07:10 Hemoglobin A1c 6.4 % A1C (<5.7) H Thyroid Stimulating Hormone (TSH) 2.33 uIU/mL (0.55-4.78) Urinalysis Test 03/07/25 14:52 Urine Color Light-yellow (Yellow) Urine Clarity Clear (Clear) Urine pH 7.0 (5.0-9.0) Urine Specific Economy 1.010 (1.001-1.035) Urine Protein Negative (Negative) Urine Ketones Negative (Negative) Urine Blood Negative /uL (Negative) Urine Nitrite Negative (Negative) Urine Bilirubin Negative (Negative) Urine Urobilinogen Normal mg/dL (Negative) Urine Leukocyte Esterase Negative /uL (Negative) Urine RBC <1 /hpf (0 - 4) Urine Microscopic WBC 1 /HPF (0-5) Urine Squamous Epithelial Cells Few /hpf (<5) Urine Bacteria Few /hpf (None Seen) H Urine Glucose 1+ mg/dL (Normal) H Labs and/or images reviewed: Labs reviewed by me, Image(s) reviewed by me Assessment/Plan Assessment/Plan Covering For Dr. Bryan #1 chest pain with cad: Status post left heart catheterization by Dr. Cruz found to have 40 percent stenosis distal to the stent in the LAD advised aggressive management of the hypertension #2 h/o event monitor #3: dm: ssi #4 htn #5 hyperlipidemia #6 hypercalcemia: check pth #7 essential thrombocytosis: on hydrea #8 anxiety #9 obesity #10 hyponatremia Plan discussed with: Patient Date of Service: March 08, 2025 Billing Provider: DANNY LYNN MD Common Visit Codes: [id number] INP/OBS CARE(HIGH) DANNY LYNN MD March 08, 2025 12:17
--- NOTE | 2025-03-08 13:52 | DVHSR ---
APPROVED REPORT EXAM: Two-dimensional and M-mode echocardiogram with Doppler and color Doppler. Blood Pressure: 130/61 mmHg INDICATION Chest Pain RISK FACTORS Height: 61, Weight: 177 DIMENSIONS LVDd (3.8-5.7cm)LA (2D)4.2 (1.9-4.0cm)Aortic Root2.8 (2.0-3.7cm) EF (%) 55.0 (55-70%)Rt. Atrium4.0 (1.9-4.0cm)Asc. Aorta cm Mitral Valve MitralMitral Stenosis E wave0.85m/sMV Mean GR.mmHg A wave1.30m/sMV Peak GR.51mmHg E/A ratio0.72D MVAcm2 DECEL [id number] 1/2 Ckpl36rm IVRTmsDop MVA2.83cm2 Aortic Valve Aortic ValveAortic Stenosis V11.00m/Carolann Mean GR.9mmHg V21.92m/Carolann Peak GR.15mmHg LVOT Diameter1.9 (1.8-2.4cm)Doppler AVA1.48cm2 Pulmonic Valve V21.21m/s Other Information Technically limited study due to patient has holter monitor placed on her chest. Unable to get daljit teral view. Conclusion EF >55% MILD TR MILD MR
--- NOTE | 2025-03-08 14:32 | DVHPN2 ---
Progress Note - Dictate Date Seen: Mar 06, 2025 Medical Necessity Reason Pt with a Central, PICC or Fol: No Subjective CHEST PAIN RADIATING TO THE LEFT SOB PALPITATION DM OUT OF CONTROL HX OF DM HTN HYPERLIPIDEMIA ANXIETY DISORDER OBESITY DIASTOLIC DYSFUNCTION vital signs Vital Sign Date Time Temp Pulse Resp B/P (MAP) Pulse Ox O2 Delivery O2 Flow Rate FiO2 03/08/25 11:03 60 141/58 03/08/25 10:08 16 96 03/08/25 07:30 Room Air* 0 21 03/08/25 05:00 97.7 97.7 Total Intake and Output 03/07/25 03/07/25 03/08/25 15:00 23:00 07:00 Intake Total 1080 ml 1100 ml Balance 1080 ml 1100 ml medications Current Medications Medications Dose Ordered Sig/My Route Start Time Stop Time Status Last Admin Dose Admin Metoprolol Succinate 25 mg DAILY PO 03/07/25 10:00 03/08/25 11:03 25 MG Aspirin 81 mg DAILY PO 03/07/25 10:00 03/08/25 11:02 81 MG Atorvastatin Calcium 40 mg HS PO 03/06/25 22:00 03/07/25 21:34 40 MG Diagnostic Test (Pha) 1 strip ACHS 03/06/25 22:00 03/08/25 11:25 1 STRIP Insulin Human Regular ACHS SC 03/06/25 22:00 03/08/25 11:25 3 UNITS Dextrose 50 ml UD PRN IV 03/06/25 19:45 Ondansetron HCl 4 mg Q4HP PRN IV 03/06/25 19:45 Acetaminophen 650 mg Q6HP PRN PO 03/06/25 19:45 03/08/25 05:26 650 MG Nitroglycerin 0.4 mg Q5MINP PRN SL 03/06/25 19:45 Hydroxyurea 500 mg BID PO 03/07/25 11:00 03/08/25 10:00 500 MG Alprazolam 0.25 mg Q12HP PRN PO 03/07/25 10:45 Pantoprazole Sodium 40 mg DAILY@0600 PO 03/07/25 10:59 03/08/25 05:22 40 MG Magnesium Oxide 400 mg DAILY PO 03/08/25 10:00 03/08/25 11:01 400 MG laboratory and microbiology Laboratory Tests 03/08/25 07:10 03/06/25 16:52 Test 03/08/25 07:10 Range/Units Serum Glucose 178 H 74-106 mg/dL Problem List CHEST PAIN RADIATING TO THE LEFT SOB PALPITATION DM OUT OF CONTROL HX OF DM HTN HYPERLIPIDEMIA ANXIETY DISORDER OBESITY DIASTOLIC DYSFUNCTION Assessment/Plan ACS PROTOCOL RESUME HOME MEDS REVIEWED AND DISCUSSED WITH ER PHYSICIAN FROM [facility] ALL IMAGING TESTS REVIEWED ALL LABS( CBC, CMP, PT PTT, ECG SCHEDULE FOR [facility] DISCUSSED WITH PT AND Plan discussed with: Patient OFE MANJARREZ MD March 08, 2025 14:32
--- NOTE | 2025-03-08 14:32 | DVHPN2 ---
Progress Note - Dictate Date Seen: March 08, 2025 Medical Necessity Reason Pt with a Central, PICC or Fol: No Subjective CHEST PAIN RADIATING TO THE LEFT SOB PALPITATION DM OUT OF CONTROL HX OF DM HTN HYPERLIPIDEMIA ANXIETY DISORDER OBESITY DIASTOLIC DYSFUNCTION vital signs Vital Sign Date Time Temp Pulse Resp B/P (MAP) Pulse Ox O2 Delivery O2 Flow Rate FiO2 03/08/25 11:03 60 141/58 03/08/25 10:08 16 96 03/08/25 07:30 Room Air* 0 21 03/08/25 05:00 97.7 97.7 Total Intake and Output 03/07/25 03/07/25 03/08/25 15:00 23:00 07:00 Intake Total 1080 ml 1100 ml Balance 1080 ml 1100 ml medications Current Medications Medications Dose Ordered Sig/My Route Start Time Stop Time Status Last Admin Dose Admin Metoprolol Succinate 25 mg DAILY PO 03/07/25 10:00 03/08/25 11:03 25 MG Aspirin 81 mg DAILY PO 03/07/25 10:00 03/08/25 11:02 81 MG Atorvastatin Calcium 40 mg HS PO 03/06/25 22:00 03/07/25 21:34 40 MG Diagnostic Test (Pha) 1 strip ACHS 03/06/25 22:00 03/08/25 11:25 1 STRIP Insulin Human Regular ACHS SC 03/06/25 22:00 03/08/25 11:25 3 UNITS Dextrose 50 ml UD PRN IV 03/06/25 19:45 Ondansetron HCl 4 mg Q4HP PRN IV 03/06/25 19:45 Acetaminophen 650 mg Q6HP PRN PO 03/06/25 19:45 03/08/25 05:26 650 MG Nitroglycerin 0.4 mg Q5MINP PRN SL 03/06/25 19:45 Hydroxyurea 500 mg BID PO 03/07/25 11:00 03/08/25 10:00 500 MG Alprazolam 0.25 mg Q12HP PRN PO 03/07/25 10:45 Pantoprazole Sodium 40 mg DAILY@0600 PO 03/07/25 10:59 03/08/25 05:22 40 MG Magnesium Oxide 400 mg DAILY PO 03/08/25 10:00 03/08/25 11:01 400 MG laboratory and microbiology Laboratory Tests 03/08/25 07:10 03/06/25 16:52 Test 03/08/25 07:10 Range/Units Serum Glucose 178 H 74-106 mg/dL Problem List CHEST PAIN RADIATING TO THE LEFT SOB PALPITATION DM OUT OF CONTROL HX OF DM HTN HYPERLIPIDEMIA ANXIETY DISORDER OBESITY DIASTOLIC DYSFUNCTION Assessment/Plan ACS PROTOCOL RESUME HOME MEDS REVIEWED AND DISCUSSED WITH ER PHYSICIAN FROM [facility] ALL IMAGING TESTS REVIEWED ALL LABS( CBC, CMP, PT PTT, ECG SCHEDULE FOR [facility] DISCUSSED WITH PT AND Plan discussed with: Patient, Spouse OFE MANJARREZ MD March 08, 2025 14:32
== END 2025-03-08 17:30 | disposition home or self-care (01) | DRG 287 ==
LOC: ER 16:42 → OVERFLOW 19:41 → TELE-CENTR 19:47
PROVIDERS: ADMIT Family Medicine; ATTEND Internal Medicine
PROC: 4A023N7 Measurement of Cardiac Sampling and Pressure, Left Heart, Percutaneous Approach (ICD-10-PCS; principal; 2025-03-08)
PROC: B211YZZ Fluoroscopy of Multiple Coronary Arteries using Other Contrast (ICD-10-PCS; 2025-03-08)
PROC: B215YZZ Fluoroscopy of Left Heart using Other Contrast (ICD-10-PCS; 2025-03-08)
PROC: 4A033BC Measurement of Arterial Pressure, Coronary, Percutaneous Approach (ICD-10-PCS; 2025-03-08)
DX: I25.10 Atherosclerotic heart disease of native coronary artery without angina pectoris (principal); E87.1 Hypo-osmolality and hyponatremia; I10 Essential (primary) hypertension; E78.5 Hyperlipidemia, unspecified; E83.52 Hypercalcemia; D47.3 Essential (hemorrhagic) thrombocythemia; E66.9 Obesity, unspecified; F41.9 Anxiety disorder, unspecified; E11.65 Type 2 diabetes mellitus with hyperglycemia; Z88.6 Allergy status to analgesic agent; Z88.0 Allergy status to penicillin; Z88.2 Allergy status to sulfonamides; Z79.82 Long term (current) use of aspirin; Z79.4 Long term (current) use of insulin; Z79.84 Long term (current) use of oral hypoglycemic drugs; Z79.899 Other long term (current) drug therapy; Z88.5 Allergy status to narcotic agent; Z95.5 Presence of coronary angioplasty implant and graft; Z68.33 Body mass index [BMI] 33.0-33.9, adult
CPT/HCPCS: 36415; 71046; 80048; 80053; 80061; 81001; 82962; 83036; 83970; 84443; 84484; 85025; 85610; 85730; 86850; 86900; 86901; 93005; 93306; 93458; 93571; 99152; G0378; J1815; J2250; Q9967

== ENCOUNTER → 2025-07-18 | Outpatient (CLI) | payer MEDICARE ==
[~2025-07-18] MED LIST changes: +ALPR0.255 PO; +HYDR500C3 PO; +METF-372 PO; +METO25TA93 PO; +SEMA2INJ3; +TRAZ150T84 PO
== END | disposition home or self-care (01) ==
LOC: Rad HDHVI 09:50
PROVIDERS: ATTEND Internal Medicine Cardiovascular Disease
DX: I11.0 Hypertensive heart disease with heart failure (principal); I50.23 Acute on chronic systolic (congestive) heart failure
CPT/HCPCS: 93306